=== PATIENT | male | born 1965 | race Caucasian/White ===

== ENCOUNTER → 2021-07-25 | Day surgery (SDC) | payer BC, OTHER ==
[~2021-07-25] MED LIST: ENTYVIO300 MG IV; FENTANYL CITRATE/PF 100MCG/2 ML INJ ONE; LIALDA1.2 GM PO; MIDAZOLAM HCL 2 MG/2 ML VIAL ONE; OR PHACO EYE KIT ONE; PREOP PHACO EYE KIT ONE
[2021-07-25 14:30] VITALS: BP 144/95
== END | disposition home or self-care (01) ==
LOC: OR 12:00
PROVIDERS: ATTEND Ophthalmology
DX: H25.12 Age-related nuclear cataract, left eye (principal); M10.9 Gout, unspecified; K51.90 Ulcerative colitis, unspecified, without complications; G47.00 Insomnia, unspecified; Z01.812 Encounter for preprocedural laboratory examination; Z20.822 Contact with and (suspected) exposure to COVID-19; Z79.899 Other long term (current) drug therapy
CPT/HCPCS: 66984; U0002; V2632; J2250; J3010

== ENCOUNTER → 2021-08-15 | Day surgery (SDC) | payer BC ==
[2021-08-15 13:20] VITALS: BP 111/81
== END | disposition home or self-care (01) ==
LOC: OR 09:15
PROVIDERS: ATTEND Ophthalmology
DX: H25.11 Age-related nuclear cataract, right eye (principal); K51.90 Ulcerative colitis, unspecified, without complications; G47.00 Insomnia, unspecified; Z01.812 Encounter for preprocedural laboratory examination; Z20.822 Contact with and (suspected) exposure to COVID-19; Z79.899 Other long term (current) drug therapy
CPT/HCPCS: 66984; J2250; J3010; U0002; V2632